=== PATIENT | female | born 1960 | race Caucasian/White ===

== ENCOUNTER 2017-03-02 06:34 | Day surgery (SDC) | payer OTHER ==
[~2017-03-02] VITALS: Ht 154.9 cm; Wt 113.4 kg
[~2017-03-02 06:34] MED LIST: SIMV40TA5; [UNRECOGNIZED DRUG - CODE]
[2017-03-02] MEDS ORDERED: LIDOCAINE 2% 100 MG/5 ML UJET TP ONE ×2 (07:31→08:22)
[2017-03-02] MEDS ORDERED: SYN.05 PO (07:44)
[2017-03-02] MEDS ORDERED: [UNRECOGNIZED DRUG - CODE] PO (07:44)
[2017-03-02] MEDS ORDERED: ATOR20TA PO (07:44)
== END 2017-03-02 09:20 | disposition home or self-care (01) ==
LOC: MDS 06:34 → MMU 06:39 → MDS 09:20
PROVIDERS: ATTEND Internal Medicine Gastroenterology
DX: D12.3 Benign neoplasm of transverse colon (principal); K57.30 Diverticulosis of large intestine without perforation or abscess without bleeding; K64.4 Residual hemorrhoidal skin tags; E78.00 Pure hypercholesterolemia, unspecified; E78.5 Hyperlipidemia, unspecified; E03.9 Hypothyroidism, unspecified; G45.9 Transient cerebral ischemic attack, unspecified
CPT/HCPCS: 82948

== ENCOUNTER 2018-05-09 11:31 | Emergency (ER) | payer OTHER ==
[~2018-05-09] VITALS: Ht 154.9 cm; Wt 113.4 kg
[~2018-05-09 11:31] MED LIST changes: +ATOR20TA PO; +SYN.05 PO; +[UNRECOGNIZED DRUG - CODE] PO
--- NOTE | 2018-05-09 11:37 | NUR ---
PT AMBULATED TO ER BED 01
--- NOTE | 2018-05-09 11:38 | NUR ---
57/F BIB DAUGHTER C/O N/V,DIZZINESS x TODAY @ 0800. PT DENIES DIARRHEA OR CONSTIPATION. . HX: DM AND HYPOTHYROIDISM.SKIN IS PINK/WARM/DRY; AAOX4 WITH EVEN AND STEADY GAIT; LUNGS CLEAR BL; PT DENIES ANY FEVER, CP, SOB, OR COUGH AT THIS TIME; PATIENT STATES PAIN OF 0/10 AT THIS TIME; PATIENT POSITIONED FOR COMFORT; HOB ELEVATED; BEDRAILS UP X2; BED DOWN. ER MD MADE AWARE OF PT STATUS.
[2018-05-09 11:39] VITALS: BP 155/73
[2018-05-09] MEDS ORDERED: NACL 0.9% 1,000 ML IV ONE (12:10)
[2018-05-09 12:44] LABS: BASOPHILS % (AUTO) 0.4 % (0.0-2.0); EOSINOPHILS # (AUTO) 0.1 K/uL (0-0.4); EOSINOPHILS % (AUTO) 1.2 % (0.0-4.0); HEMATOCRIT 40.9 % (36-48); HEMOGLOBIN 13.1 g/dL (12.0-16.0); LYMPHOCYTES % (AUTO) 31.3 % (20.5-51.1); MEAN CORPUSCULAR HEMOGLOBIN 28 pg (27-31); MEAN CORPUSCULAR HGB CONC 32 g/dL (33-37); MEAN CORPUSCULAR VOLUME 85.6 fL (80-94); MONOCYTES # (AUTO) 0.4 K/uL (0.8-1.0); MONOCYTES % (AUTO) 6.3 % (1.7-9.3); NEUTROPHILS # (AUTO) 3.9 K/uL (1.8-7.7); NEUTROPHILS % (AUTO) 60.8 % (42.2-75.2); PLATELET COUNT (AUTO) 280 K/uL (140-450); RED BLOOD CELL COUNT(AUTO) 4.77 MIL/uL (4.20-5.40); RED CELL DISTRIBUTION WIDTH 14.2 % (11.6-13.7); WHITE BLOOD COUNT (AUTO) 6.4 K/uL (4.8-10.8)
[2018-05-09 12:59] LABS: ALBUMIN 3.4 g/dL (3.4-5.0); ANION GAP 6.9 (8-16); CARBON DIOXIDE 31.1 mmol/L (21-32); CREATININE 0.6 mg/dL (0.6-1.3); TOTAL BILIRUBIN 0.4 mg/dL (0.0-1.0)
[2018-05-09 14:03] VITALS: BP 155/73
== END 2018-05-09 14:03 | disposition home or self-care (01) ==
LOC: MED 11:31
DX: R11.2 Nausea with vomiting, unspecified (principal); R42 Dizziness and giddiness; I10 Essential (primary) hypertension; Z79.899 Other long term (current) drug therapy
CPT/HCPCS: 36415; 70450; 71045; 80053; 82550; 82553; 83690; 84484; 85025; 93005; 96360; 99285; J7030; Q0092